=== PATIENT | female | born 1975 | race Caucasian/White ===

== ENCOUNTER 2018-08-22 19:39 | Emergency (ER) | payer MEDICAID ==
[~2018-08-22 19:39] MED LIST: ALBU18HF2 INH; ATR0.5NEB NEB; CLON-514 PO; LORA-269 PO; LURA20TA PO; NEUPHOSK PO; TRAZ-219 PO
--- NOTE | 2018-08-23 09:37 | NUR ---
Called patient to return to ED. Patient is on her way to the ER now.
== END 2018-08-22 21:30 | disposition left against medical advice (07) ==
LOC: ER 19:40
DX: R10.9 Unspecified abdominal pain (principal); Z53.21 Procedure and treatment not carried out due to patient leaving prior to being seen by health care provider

== ENCOUNTER 2018-08-24 11:15 | Inpatient (IN) | payer MEDICAID ==
[~2018-08-24] VITALS: Ht 172.7 cm; Wt 114.0 kg
[2018-08-24 12:18] LABS: BASOPHILS # (AUTO) 0.1 X10'3 (0-0.2); BASOPHILS % (AUTO) 1.3 % (0-1); EOSINOPHILS # (AUTO) 0.1 X10'3 (0-0.9); EOSINOPHILS % (AUTO) 1.4 % (0-6); HEMATOCRIT 39.8 % (35.0-45.0); HEMOGLOBIN 12.8 g/dl (12.0-16.0); LYMPHOCYTES # (AUTO) 2.1 X10'3 (1.1-4.8); MEAN CORPUSCULAR HGB CONC 32.3 g/dL (33.0-36.5); MEAN CORPUSCULAR VOLUME 86.7 FL (78-98); MEAN PLATELET VOLUME 6.9 FL (7.4-10.4); MONOCYTES # (AUTO) 0.8 X10'3 (0-0.9); MONOCYTES % (AUTO) 8.4 % (2-12); NEUTROPHILS # (AUTO) 6.3 X10'3 (1.8-7.7); NEUTROPHILS % (AUTO) 66.9 % (42-75); PLATELET COUNT 512 X10'3 (140-440); RED BLOOD COUNT 4.59 X10'6 (4.20-5.60); RED CELL DISTRIBUTION WIDTH 15.6 % (11.5-14.5); WHITE BLOOD COUNT 9.5 X10'3 (4.5-11.0)
[2018-08-24 12:29] LABS: ALANINE AMINOTRANSFERASE 44 U/L (12-78); ALBUMIN 3.8 G/DL (3.4-5.0); ALBUMIN/GLOBULIN RATIO 0.9 (1.1-1.5); ALKALINE PHOSPHATASE 156 IU/L (46-116); AMYLASE 116 U/L (25-115); ANION GAP 10 (8-16); ASPARTATE AMINO TRANSFERASE 22 U/L (10-37); BILIRUBIN,TOTAL 0.7 MG/DL (0.1-1.0); BLOOD UREA NITROGEN 12 MG/DL (7-18); BUN/CREATININE RATIO 12.8 (6.6-38.0); CALCIUM 9.2 MG/DL (8.5-10.1); CHLORIDE 101 MMOL/L (99-107); CREATININE 0.94 MG/DL (0.40-0.90); GLUCOSE 104 MG/DL (70-104); LIPASE 1118 U/L (73-393); POTASSIUM 3.9 MMOL/L (3.5-5.1); SODIUM 139 MMOL/L (135-145); TOTAL CARBON DIOXIDE 28.1 MMOL/L (24-32); TOTAL PROTEIN 8.1 G/DL (6.4-8.2); eGFR 66 ML/MIN
[2018-08-24 12:32] LABS: PROTHROMBIN TIME 10.2 SECONDS (9.0-12.0)
[2018-08-24] MEDS ORDERED: potassium Cl 40MEQ/NS 500ml 500 ML IV PRN ×2 (14:00)
[2018-08-24] MEDS ORDERED: magnesium 2GM in 50ml NS 50 ML IV PRN (14:00)
[2018-08-24] MEDS ORDERED: magnesium 4gm in 100ml NS 100 ML IV PRN (14:00)
[2018-08-24] MEDS ORDERED: acetaminophen 325mg tablet PO PRN (14:00)
[2018-08-24] MEDS ORDERED: potassium Cl 20 mEq SR tablet PO PRN ×2 (14:00)
[2018-08-24] MEDS ORDERED: mag hydrox/Alum hydrox/simeth 30ml oral suspension PO PRN (14:00)
[2018-08-24] MEDS ORDERED: magnesium hydroxide 30ml (MOM) UD suspension PO PRN (14:00)
--- NOTE | 2018-08-24 15:28 | NUR ---
attempted right thumb piv
[2018-08-24] MEDS: normal saline 1000ml 1,000 ML IV SCH ×2 (16:14→21:26)
[2018-08-24] MEDS ORDERED: ondansetron/PF 4mg/2ml inj IV ONE (16:45)
[2018-08-24] MEDS ORDERED: morphine 4 MG/ML inj SYRINge IV ONE (16:45)
[2018-08-24] MEDS ORDERED: HYDR50TA65 PO (16:57)
[2018-08-24] MEDS ORDERED: LORA0.5T PO (16:57)
[2018-08-24] MEDS ORDERED: ONDA8TAB12 PO (16:57)
[2018-08-24] MEDS ORDERED: LINA290C PO (16:58)
[2018-08-24] MEDS ORDERED: PROC25SU2 RC (16:59)
[2018-08-24] MEDS ORDERED: GABA-532 PO (17:00)
[2018-08-24] MEDS ORDERED: LAMO100T89 PO (17:02)
[2018-08-24] MEDS ORDERED: NORT50CA PO (17:02)
[2018-08-24] MEDS ORDERED: ESCI20TA38 PO (17:02)
[2018-08-24] MEDS ORDERED: DICY20TA17 PO (17:02)
--- NOTE | 2018-08-24 17:30 | NUR ---
pt arrived via [facility] nursing unit.
[2018-08-24 17:31] VITALS: BP 141/89
[2018-08-24 18:00] VITALS: BP 128/88
--- NOTE | 2018-08-24 18:10 | NUR ---
call to Dr. Lester regarding order for pain meds pending call back.
--- NOTE | 2018-08-24 18:19 | NUR ---
Problems reprioritized. Informed on comming nurse of pending call back from MD in regards for pain meds. Patient report given, questions answered & plan of care reviewed with Gurpreet GALLARDO.
[2018-08-24] MEDS ORDERED: proCHLORperazine 25mg suppository RC PRN (18:30)
[2018-08-24] MEDS ORDERED: LORazepam 0.5 MG tablet PO PRN (18:30)
--- NOTE | 2018-08-24 18:30 | NUR ---
Patient in room [facility] 345. I have received report from Patricia GALLARDO and had the opportunity to ask questions and assume patient care. Pt in room, sitting on bed. No s/s of distress.
[2018-08-24] MEDS: dicyclomine 10 MG capsule PO SCH (19:15)
[2018-08-24] MEDS ORDERED: metoclopramide 5 mg/ml inj IV PRN (20:05)
[2018-08-24] MEDS: HYDROmorphone inj. 0.5 MG/0.5 ML DISP.SYRIN IV PRN (20:17)
[2018-08-24] MEDS: hydrOXYzine 25 MG tablet PO SCH (21:26)
[2018-08-24] MEDS ORDERED: mirtazapine 15mg tablet PO PRN (22:25)
[2018-08-24] MEDS: ondansetron/PF 4mg/2ml inj IV PRN (22:31)
[2018-08-25] VITALS: BP 135/83
[2018-08-25] MEDS: HYDROmorphone inj. 0.5 MG/0.5 ML DISP.SYRIN IV PRN ×4 (03:38→21:07)
[2018-08-25 06:03] LABS: BASOPHILS # (AUTO) 0.1 X10'3 (0-0.2); BASOPHILS % (AUTO) 1.4 % (0-1); EOSINOPHILS # (AUTO) 0.2 X10'3 (0-0.9); EOSINOPHILS % (AUTO) 2.3 % (0-6); HEMOGLOBIN 11.8 g/dl (12.0-16.0); LYMPHOCYTES # (AUTO) 2.2 X10'3 (1.1-4.8); LYMPHOCYTES % (AUTO) 25.6 % (21-51); MEAN CORPUSCULAR HEMOGLOBIN 28.6 PG (27.0-31.0); MEAN CORPUSCULAR HGB CONC 32.7 g/dL (33.0-36.5); MEAN CORPUSCULAR VOLUME 87.2 FL (78-98); MEAN PLATELET VOLUME 7.6 FL (7.4-10.4); MONOCYTES # (AUTO) 0.9 X10'3 (0-0.9); MONOCYTES % (AUTO) 9.9 % (2-12); NEUTROPHILS # (AUTO) 5.2 X10'3 (1.8-7.7); NEUTROPHILS % (AUTO) 60.8 % (42-75); PLATELET COUNT 411 X10'3 (140-440); RED BLOOD COUNT 4.12 X10'6 (4.20-5.60); RED CELL DISTRIBUTION WIDTH 15.8 % (11.5-14.5); WHITE BLOOD COUNT 8.6 X10'3 (4.5-11.0)
--- NOTE | 2018-08-25 06:30 | NUR ---
Student documentation: I will review all interventions, assessments performed and documented by Nora HERNÁNDEZ for [facility]. Student Medication Administration: For this medication-pass time frame, all medication were reviewed, dispensed, administered and documented per hospital policy by Nora GALLARDO.
--- NOTE | 2018-08-25 06:30 | NUR ---
Patient in room [facility] 345. I have received report from Gurpreet GALLARDO and had the opportunity to ask questions and assume patient care.
[2018-08-25 07:41] VITALS: BP 126/80
[2018-08-25] MEDS: K and/or MAG REPLACEMENT MC SCH (08:00)
[2018-08-25] MEDS: LINZESS 290 MCG PO SCH (08:00)
[2018-08-25] MEDS: dicyclomine 10 MG capsule PO SCH ×2 (09:43→21:07)
[2018-08-25] MEDS: hydrOXYzine 25 MG tablet PO SCH ×3 (09:48→21:07)
[2018-08-25] MEDS: normal saline 1000ml 1,000 ML IV SCH ×2 (09:49→21:08)
--- NOTE | 2018-08-25 09:50 | NUR ---
Patient on the unit from recovery. Report gotten.
[2018-08-25] MEDS: ondansetron/PF 4mg/2ml inj IV PRN ×2 (10:24→20:33)
[2018-08-25 10:28] LABS: ALANINE AMINOTRANSFERASE 47 U/L (12-78); ALBUMIN 3.2 G/DL (3.4-5.0); ALBUMIN/GLOBULIN RATIO 0.9 (1.1-1.5); ALKALINE PHOSPHATASE 140 IU/L (46-116); ANION GAP 10 (8-16); ASPARTATE AMINO TRANSFERASE 32 U/L (10-37); BILIRUBIN,TOTAL 0.9 MG/DL (0.1-1.0); BLOOD UREA NITROGEN 10 MG/DL (7-18); BUN/CREATININE RATIO 10.9 (6.6-38.0); CALCIUM 8.5 MG/DL (8.5-10.1); CHLORIDE 106 MMOL/L (99-107); CHOL/HDL RATIO 5.4 (0.00-4.99); CHOLESTEROL 174 MG/DL (0-200); CREATININE 0.92 MG/DL (0.40-0.90); GLUCOSE 100 MG/DL (70-104); HDL CHOLESTEROL 32 MG/DL (35-60); LDL CHOLESTEROL 127 MG/DL (50-100); POTASSIUM 3.7 MMOL/L (3.5-5.1); SODIUM 142 MMOL/L (135-145); TOTAL PROTEIN 6.9 G/DL (6.4-8.2); TRIGLYCERIDES 131 MG/DL (20-135); eGFR 67 ML/MIN
[2018-08-25 12:00] VITALS: BP 133/87
[2018-08-25] MEDS: LORazepam 2 mg/ml vial IV PRN (16:01)
--- NOTE | 2018-08-25 18:06 | NUR ---
Problems reprioritized. Patient report given, questions answered & plan of care reviewed with Rebecca GALLARDO.
--- NOTE | 2018-08-25 18:10 | NUR ---
Received report from primary care nurse Jayna GALLARDO. Assumed patient care. Patient is awake and alert on room air. In no apparent distress. Call light and items of frequent use within reach. Will continue to monitor for changes.
[2018-08-25 18:15] VITALS: BP 134/83
[2018-08-25] MEDS: diatr meglu/diatrizoate 30ml oral sol.-(3 dose) bottle PO SCH (21:07)
[2018-08-26] VITALS: BP 137/90
[2018-08-26] MEDS: HYDROmorphone inj. 0.5 MG/0.5 ML DISP.SYRIN IV PRN ×3 (01:07→13:45)
[2018-08-26] MEDS: normal saline 1000ml 1,000 ML IV SCH (05:12)
--- NOTE | 2018-08-26 06:05 | NUR ---
Patient in room [facility] 345. I have received report from PAULINA Fernandez and had the opportunity to ask questions and assume patient care.
--- NOTE | 2018-08-26 06:09 | NUR ---
Reported off to Yelitza RN. Patient is resting with relaxed and unlabored respirations on room air. Call light and items of frequent use within reach.
[2018-08-26] MEDS: K and/or MAG REPLACEMENT MC SCH (07:08)
[2018-08-26] MEDS: dicyclomine 10 MG capsule PO SCH (07:14)
[2018-08-26] MEDS: hydrOXYzine 25 MG tablet PO SCH ×2 (07:14→13:42)
[2018-08-26] MEDS: ondansetron/PF 4mg/2ml inj IV PRN ×2 (07:14→13:42)
[2018-08-26 07:16] LABS: ALANINE AMINOTRANSFERASE 36 U/L (12-78); ALBUMIN 2.8 G/DL (3.4-5.0); ALBUMIN/GLOBULIN RATIO 0.8 (1.1-1.5); ALKALINE PHOSPHATASE 120 IU/L (46-116); ANION GAP 7 (8-16); ASPARTATE AMINO TRANSFERASE 21 U/L (10-37); BILIRUBIN,TOTAL 0.6 MG/DL (0.1-1.0); BLOOD UREA NITROGEN 8 MG/DL (7-18); BUN/CREATININE RATIO 9.6 (6.6-38.0); CHLORIDE 108 MMOL/L (99-107); CREATININE 0.83 MG/DL (0.40-0.90); GLUCOSE 95 MG/DL (70-104); LIPASE 149 U/L (73-393); MAGNESIUM 1.6 MG/DL (1.5-2.4); POTASSIUM 3.5 MMOL/L (3.5-5.1); SODIUM 142 MMOL/L (135-145); TOTAL CARBON DIOXIDE 27.3 MMOL/L (24-32); TOTAL PROTEIN 6.2 G/DL (6.4-8.2); eGFR 76 ML/MIN
[2018-08-26] MEDS: LINZESS 290 MCG PO SCH (07:17)
[2018-08-26] MEDS: diatr meglu/diatrizoate 30ml oral sol.-(3 dose) bottle PO SCH ×2 (07:19→08:59)
[2018-08-26 07:24] LABS: BASOPHILS % (AUTO) 0.6 % (0-1); EOSINOPHILS # (AUTO) 0.2 X10'3 (0-0.9); EOSINOPHILS % (AUTO) 3.3 % (0-6); HEMATOCRIT 33.2 % (35.0-45.0); HEMOGLOBIN 10.6 g/dl (12.0-16.0); LYMPHOCYTES # (AUTO) 2.2 X10'3 (1.1-4.8); LYMPHOCYTES % (AUTO) 31.6 % (21-51); MEAN CORPUSCULAR HEMOGLOBIN 28.2 PG (27.0-31.0); MEAN CORPUSCULAR HGB CONC 32.1 g/dL (33.0-36.5); MEAN CORPUSCULAR VOLUME 88.1 FL (78-98); MEAN PLATELET VOLUME 7.4 FL (7.4-10.4); MONOCYTES # (AUTO) 0.7 X10'3 (0-0.9); MONOCYTES % (AUTO) 9.8 % (2-12); NEUTROPHILS # (AUTO) 3.8 X10'3 (1.8-7.7); NEUTROPHILS % (AUTO) 54.7 % (42-75); PLATELET COUNT 382 X10'3 (140-440); RED BLOOD COUNT 3.77 X10'6 (4.20-5.60); RED CELL DISTRIBUTION WIDTH 15.5 % (11.5-14.5); WHITE BLOOD COUNT 6.9 X10'3 (4.5-11.0)
[2018-08-26 07:29] VITALS: BP 136/88
[2018-08-26] MEDS ORDERED: iohexol 300mg/ml 100ml inj. ONE (09:01)
[2018-08-26] MEDS: LORazepam 2 mg/ml vial IV PRN (10:40)
[2018-08-26 11:00] VITALS: BP 140/87
[2018-08-26] MEDS ORDERED: HYDR-4353 PO (14:03)
--- NOTE | 2018-08-26 15:20 | NUR ---
DC inst provided to pt. IV DC'd, tip intact. All belongings sent w/pt. WC to front lobby.
== END 2018-08-26 15:20 | disposition home or self-care (01) | DRG 282 ==
LOC: ER 11:15 → ED HOLD 13:56 → UNDOADMIN 14:30 → ADULT MH 14:30 → SUR 3N 17:02
PROVIDERS: ADMIT Family Medicine; ATTEND Family Medicine
PROC: BW211ZZ Computerized Tomography (CT Scan) of Abdomen and Pelvis using Low Osmolar Contrast (ICD-10-PCS; principal; 2018-08-26)
DX: K85.90 Acute pancreatitis without necrosis or infection, unspecified (principal); K31.84 Gastroparesis; K57.92 Diverticulitis of intestine, part unspecified, without perforation or abscess without bleeding; F32.9 Major depressive disorder, single episode, unspecified; D64.9 Anemia, unspecified; E78.1 Pure hyperglyceridemia; E78.5 Hyperlipidemia, unspecified; F41.9 Anxiety disorder, unspecified; K86.1 Other chronic pancreatitis; Z88.0 Allergy status to penicillin; Z80.41 Family history of malignant neoplasm of ovary; Z88.8 Allergy status to other drugs, medicaments and biological substances; Z90.49 Acquired absence of other specified parts of digestive tract; Z80.8 Family history of malignant neoplasm of other organs or systems
CPT/HCPCS: 36415; 74177; 80053; 80061; 82150; 83690; 83735; 85025; 85610; 87070; 99285; G0378; J1170; J2060; J2270; J2405; J7030; Q0177; Q9963; Q9967

== ENCOUNTER 2019-08-03 11:16 | Emergency (ER) | payer MEDICAID ==
[~2019-08-03] VITALS: Ht 172.7 cm; Wt 87.5 kg
[~2019-08-03 11:16] MED LIST changes: -CLON-514 PO; +DICY20TA17 PO; +ESCI20TA45 PO; +GABA-532 PO; +HYDR50TA65 PO; +LAMO100T PO; +LINA290C PO; -LORA-269 PO; +LORA0.5T PO; -NEUPHOSK PO; +NORT50CA PO; +ONDA8TAB65 PO; +PROC25SU2 RC; -TRAZ-219 PO
[2019-08-03] MEDS ORDERED: DOXYCYCLINE 100MG CAPSULE PO STA (11:41)
[2019-08-03] MEDS ORDERED: mupirocin 2% ointment 22GM TP STA (11:41)
[2019-08-03] MEDS ORDERED: methylPREDNISolone sod succ 125mg/2ml vial IM ONE (11:45)
[2019-08-03] MEDS ORDERED: MUPI22OI30 TOP (12:09)
[2019-08-03] MEDS ORDERED: DOXY100C43 PO (12:09)
[2019-08-03 12:34] VITALS: BP 144/87
== END 2019-08-03 12:39 | disposition home or self-care (01) ==
LOC: ER 11:18
DX: T78.40XA Allergy, unspecified, initial encounter (principal); L01.09 Other impetigo; H00.035 Abscess of left lower eyelid; F12.90 Cannabis use, unspecified, uncomplicated; Z90.49 Acquired absence of other specified parts of digestive tract; Z88.0 Allergy status to penicillin; Z88.1 Allergy status to other antibiotic agents; Z88.8 Allergy status to other drugs, medicaments and biological substances; Z79.899 Other long term (current) drug therapy; X58.XXXA Exposure to other specified factors, initial encounter
CPT/HCPCS: 96372; 99284; J2930

== ENCOUNTER 2019-08-12 21:14 | Emergency (ER) | payer MEDICAID ==
[~2019-08-12] VITALS: Ht 172.7 cm; Wt 122.7 kg
[~2019-08-12 21:14] MED LIST changes: +DOXY100C43 PO
[2019-08-12] MEDS ORDERED: HYDROcodone/acetaminophen 10/325mg tab PO ONE ×2 (22:10→22:15)
[2019-08-12 22:20] LABS: ALANINE AMINOTRANSFERASE 22 U/L (12-78); ALBUMIN 3.4 G/DL (3.4-5.0); ALBUMIN/GLOBULIN RATIO 0.9 (1.1-1.5); ALKALINE PHOSPHATASE 103 IU/L (46-116); ANION GAP 4 (8-16); ASPARTATE AMINO TRANSFERASE 14 U/L (10-37); BILIRUBIN,TOTAL 0.5 MG/DL (0.1-1.0); BLOOD UREA NITROGEN 18 MG/DL (7-18); CALCIUM 8.7 MG/DL (8.5-10.1); CHLORIDE 106 MMOL/L (99-107); CREATININE 0.82 MG/DL (0.40-0.90); GLUCOSE 92 MG/DL (70-104); LIPASE 219 U/L (73-393); POTASSIUM 4.1 MMOL/L (3.5-5.1); SODIUM 139 MMOL/L (135-145); TOTAL CARBON DIOXIDE 28.7 MMOL/L (24-32); TOTAL PROTEIN 7.1 G/DL (6.4-8.2); eGFR 76 ML/MIN
[2019-08-12 22:35] LABS: BASOPHILS # (AUTO) 0.1 X10'3 (0-0.2); BASOPHILS % (AUTO) 1.3 % (0-1); EOSINOPHILS # (AUTO) 0.2 X10'3 (0-0.9); HEMATOCRIT 37.8 % (35.0-45.0); HEMOGLOBIN 12.6 g/dl (12.0-16.0); LYMPHOCYTES # (AUTO) 2.2 X10'3 (1.1-4.8); LYMPHOCYTES % (AUTO) 19.4 % (21-51); MEAN CORPUSCULAR HEMOGLOBIN 29.6 PG (27.0-31.0); MEAN CORPUSCULAR HGB CONC 33.3 g/dL (33.0-36.5); MEAN CORPUSCULAR VOLUME 88.7 FL (78-98); MEAN PLATELET VOLUME 7.6 FL (7.4-10.4); MONOCYTES # (AUTO) 0.7 X10'3 (0-0.9); MONOCYTES % (AUTO) 6.1 % (2-12); NEUTROPHILS % (AUTO) 71.2 % (42-75); PLATELET COUNT 375 X10'3 (140-440); RED BLOOD COUNT 4.27 X10'6 (4.20-5.60); RED CELL DISTRIBUTION WIDTH 15.6 % (11.5-14.5); WHITE BLOOD COUNT 11.2 X10'3 (4.5-11.0)
[2019-08-12] MEDS ORDERED: levetiracetam 250mg tablet PO ONE ×2 (23:00→23:05)
[2019-08-12] MEDS ORDERED: KEP500T PO (23:02)
[2019-08-12 23:25] VITALS: BP 164/73
== END 2019-08-12 23:28 | disposition home or self-care (01) ==
LOC: ER 21:15
DX: S30.1XXA Contusion of abdominal wall, initial encounter (principal); G40.909 Epilepsy, unspecified, not intractable, without status epilepticus; F12.90 Cannabis use, unspecified, uncomplicated; Z90.49 Acquired absence of other specified parts of digestive tract; Z88.0 Allergy status to penicillin; Z88.8 Allergy status to other drugs, medicaments and biological substances; Z79.899 Other long term (current) drug therapy
CPT/HCPCS: 36415; 80053; 83690; 85025; 99284

== ENCOUNTER 2019-09-03 17:22 | Emergency (ER) | payer MEDICAID ==
[~2019-09-03] VITALS: Ht 170.2 cm; Wt 83.0 kg
[~2019-09-03 17:22] MED LIST changes: -DOXY100C43 PO; +KEP500T PO
[2019-09-03 18:07] VITALS: BP 118/83
== END 2019-09-03 20:54 | disposition left against medical advice (07) ==
LOC: ER 17:23
DX: R07.89 Other chest pain (principal); M79.602 Pain in left arm; M79.601 Pain in right arm; Z53.21 Procedure and treatment not carried out due to patient leaving prior to being seen by health care provider
CPT/HCPCS: 93005

== ENCOUNTER 2020-06-05 12:07 | Emergency (ER) | payer MEDICAID ==
[~2020-06-05] VITALS: Ht 172.7 cm; Wt 81.8 kg
[2020-06-05 13:03] LABS: EOSINOPHILS # (AUTO) 0.2 X10'3 (0-0.9); MEAN CORPUSCULAR HEMOGLOBIN 30.7 PG (27.0-31.0); MONOCYTES # (AUTO) 0.5 X10'3 (0-0.9); NEUTROPHILS # (AUTO) 4.3 X10'3 (1.8-7.7)
[2020-06-05 13:05] LABS: BASOPHILS % (AUTO) 0.2 % (0-1); EOSINOPHILS % (AUTO) 2.6 % (0-6); HEMATOCRIT 40.2 % (35.0-45.0); HEMOGLOBIN 13.2 g/dl (12.0-16.0); LYMPHOCYTES # (AUTO) 1.2 X10'3 (1.1-4.8); LYMPHOCYTES % (AUTO) 19.7 % (21-51); MEAN CORPUSCULAR HGB CONC 32.7 g/dL (33.0-36.5); MEAN CORPUSCULAR VOLUME 93.9 FL (78-98); MEAN PLATELET VOLUME 8.1 FL (7.4-10.4); MONOCYTES % (AUTO) 7.6 % (2-12); NEUTROPHILS % (AUTO) 69.9 % (42-75); PLATELET COUNT 295 X10'3 (140-440); RED BLOOD COUNT 4.29 X10'6 (4.20-5.60); RED CELL DISTRIBUTION WIDTH 14.1 % (11.5-14.5); WHITE BLOOD COUNT 6.1 X10'3 (4.5-11.0)
[2020-06-05 13:05] LABS: ALANINE AMINOTRANSFERASE 22 U/L (12-78); ALBUMIN 3.6 G/DL (3.4-5.0); ALKALINE PHOSPHATASE 86 IU/L (46-116); ANION GAP 5 (8-16); ASPARTATE AMINO TRANSFERASE 17 U/L (10-37); BILIRUBIN,TOTAL 0.4 MG/DL (0.1-1.0); BLOOD UREA NITROGEN 8 MG/DL (7-18); BUN/CREATININE RATIO 9.3 (6.6-38.0); CALCIUM 9.4 MG/DL (8.5-10.1); CHLORIDE 108 MMOL/L (99-107); CREATININE 0.86 MG/DL (0.40-0.90); GLUCOSE 106 MG/DL (70-104); MAGNESIUM 2.2 MG/DL (1.5-2.4); POTASSIUM 4.1 MMOL/L (3.5-5.1); SODIUM 141 MMOL/L (135-145); TOTAL CARBON DIOXIDE 27.6 MMOL/L (24-32); TOTAL PROTEIN 7.2 G/DL (6.4-8.2); eGFR 72 ML/MIN
[2020-06-05 14:09] VITALS: BP 140/90
== END 2020-06-05 14:14 | disposition home or self-care (01) ==
LOC: ER 12:08
DX: R11.2 Nausea with vomiting, unspecified (principal); F12.90 Cannabis use, unspecified, uncomplicated; Z86.69 Personal history of other diseases of the nervous system and sense organs; Z90.49 Acquired absence of other specified parts of digestive tract; Z87.891 Personal history of nicotine dependence; Z88.0 Allergy status to penicillin; Z88.8 Allergy status to other drugs, medicaments and biological substances; Z79.899 Other long term (current) drug therapy
CPT/HCPCS: 36415; 70450; 80053; 83735; 85025; 99284

== ENCOUNTER 2021-08-23 11:01 | Emergency (ER) | payer MEDICAID ==
[~2021-08-23] VITALS: Ht 172.7 cm; Wt 82.0 kg
[~2021-08-23 11:01] MED LIST changes: +ESCI20TA39 PO; -ESCI20TA45 PO; +ONDA-104 PO; -ONDA8TAB65 PO
[2021-08-23] MEDS ORDERED: dexamethasone 4mg tablet PO ONE (11:30)
[2021-08-23] MEDS ORDERED: diphenhydrAMINE 25mg capsule PO ONE (11:30)
[2021-08-23] MEDS ORDERED: famotidine 20mg tablet PO ONE (11:30)
[2021-08-23] MEDS ORDERED: sulfamethoxazole/trimethoprim DS (800/160mg) tablet PO ONE (11:50)
[2021-08-23] MEDS ORDERED: PRED20TA PO (12:35)
[2021-08-23] MEDS ORDERED: SULF1TAB49 PO (12:35)
[2021-08-23] MEDS ORDERED: CLIN150C2 PO (12:35)
[2021-08-23 14:04] VITALS: BP 137/77
== END 2021-08-23 14:05 | disposition home or self-care (01) ==
LOC: ER 11:01
DX: T78.40XA Allergy, unspecified, initial encounter (principal); L03.211 Cellulitis of face; Z88.0 Allergy status to penicillin; Z88.1 Allergy status to other antibiotic agents; Z88.8 Allergy status to other drugs, medicaments and biological substances
CPT/HCPCS: 99284

== ENCOUNTER 2022-01-08 13:35 | Emergency (ER) | payer MEDICAID ==
[~2022-01-08] VITALS: Ht 170.2 cm; Wt 81.0 kg
[2022-01-08 15:45] VITALS: BP 161/98
== END 2022-01-08 17:22 | disposition left against medical advice (07) ==
LOC: ER 13:37
DX: M25.571 Pain in right ankle and joints of right foot (principal); Z53.21 Procedure and treatment not carried out due to patient leaving prior to being seen by health care provider

== ENCOUNTER 2022-02-11 14:36 | Emergency (ER) | payer MEDICAID ==
[~2022-02-11] VITALS: Ht 170.2 cm; Wt 84.1 kg
[2022-02-11 14:40] VITALS: BP 172/106
[2022-02-11] MEDS ORDERED: IBUP-1986 PO (15:57)
== END 2022-02-11 16:20 | disposition home or self-care (01) ==
LOC: ER 14:37
DX: S93.401A Sprain of unspecified ligament of right ankle, initial encounter (principal); F12.90 Cannabis use, unspecified, uncomplicated; Z90.49 Acquired absence of other specified parts of digestive tract; Z88.0 Allergy status to penicillin; Z88.1 Allergy status to other antibiotic agents; Z88.8 Allergy status to other drugs, medicaments and biological substances; Z79.899 Other long term (current) drug therapy; W18.2XXA Fall in (into) shower or empty bathtub, initial encounter; Y93.89 Activity, other specified; Y92.89 Other specified places as the place of occurrence of the external cause; Y99.8 Other external cause status
CPT/HCPCS: 73610; 99283

== ENCOUNTER 2022-04-08 02:08 | Emergency (ER) | payer MEDICAID ==
[~2022-04-08] VITALS: Ht 170.2 cm; Wt 84.1 kg
[~2022-04-08 02:08] MED LIST changes: +IBUP-1986 PO
[2022-04-08] MEDS ORDERED: HYDROcodone/acetaminophen 5mg/325mg tablet PO ONE (02:30)
[2022-04-08] MEDS ORDERED: NAPR-56 PO (03:54)
--- NOTE | 2022-04-08 05:21 | NUR ---
Patient currently awaiting ride home
[2022-04-08 07:27] VITALS: BP 154/86
== END 2022-04-08 07:31 | disposition home or self-care (01) ==
LOC: ER 02:09
DX: S63.285A Dislocation of proximal interphalangeal joint of left ring finger, initial encounter (principal); M79.645 Pain in left finger(s); F12.90 Cannabis use, unspecified, uncomplicated; Z86.69 Personal history of other diseases of the nervous system and sense organs; Z90.49 Acquired absence of other specified parts of digestive tract; Z88.0 Allergy status to penicillin; Z88.1 Allergy status to other antibiotic agents; Z88.8 Allergy status to other drugs, medicaments and biological substances; Z79.899 Other long term (current) drug therapy; W18.2XXA Fall in (into) shower or empty bathtub, initial encounter; Y93.89 Activity, other specified; Y92.89 Other specified places as the place of occurrence of the external cause; Y99.8 Other external cause status
CPT/HCPCS: 26770; 73130; 73140; 99285